=== PATIENT | male | born 1970 | race Caucasian/White ===

== ENCOUNTER 2017-04-22 18:12 | Emergency (ER) | payer MEDICAID, OTHER ==
[~2017-04-22 18:12] MED LIST: CITA40 PO; OXYC1SOL5 PO; QUET300 PO; RIVA20 PO
[2017-04-22 18:18] VITALS: BP 142/90; PULSE 68; RESP 20; TEMP 98; O2SAT 98
[2017-04-22] MEDS ORDERED: BUSP5TAB PO (18:44)
[2017-04-22] MEDS ORDERED: XARE10TA PO (18:44)
[2017-04-22] MEDS ORDERED: BUPR100CR PO (18:44)
[2017-04-22] MEDS ORDERED: TRAZ50TA12 PO (18:44)
[2017-04-22] MEDS ORDERED: LURA20TA PO (18:44)
--- NOTE | 2017-04-22 18:55 | PD ---
HPI Chief Complaint: Suicide Ideation/Attempt Time Seen by Provider: 18:45 Travel History International Travel<30 days: No Contact w/Intl Traveler<30days: No Traveled to known affect area: No History of Present Illness HPI 47-year-old male complains of feeling suicidal today. Patient has history of psychosis and major depression. Patient is on medication for them. Patient's psychiatrist is in [place]. Patient also has history of COPD, hyperlipidemia, DVT. Patient is a smoker. Patient denies any shortness of breath. PFSH Past Medical History Hx Anticoagulant Therapy: Yes (XARELTO) Arthritis: No Asthma: No Autoimmune Disease: No Anxiety: No Depression: Yes Heart Rhythm Problems: No Cancer: No Cardiovascular Problems: Yes High Cholesterol: No Chemotherapy: No Chest Pain: No Congestive Heart Failure: No COPD: Yes Cerebrovascular Accident: Yes (TIA'S ..EPISODES OF DIZZINESS WITH TUNNEL VISION ) Diabetes: No Diminished Hearing: No Deep Vein Thrombosis: Yes Endocrine: No GERD: No Genitourinary: Yes Hiatal Hernia: No Hypertension: No Immune Disorder: Yes (ANTIPHOSPHOLIPID ANTIBODY;PROCTOR SYNDROM) Implanted Vascular Access Dvce: Yes Kidney Stones: Yes (2 years ago) Musculoskeletal: Yes Neurologic: Yes Psychiatric: Yes (MDD; PSYCHOAFFECTIVE D/O) Reproductive: No Respiratory: Yes Immunizations Current: Yes Migraines: No Myocardial Infarction: No Radiation Therapy: No Renal Failure: No Seizures: No Sickle Cell Disease: No Sleep Apnea: No Thyroid Disease: No Ulcer: No Past Surgical History Abdominal Surgery: No AICD: No Arteriovenous Shunt: Yes (IVC FILTER IN 2008) Cardiac Surgery: Yes (IVC filter in Sep 2008 AT [facility]) Ear Surgery: No Endocrine Surgery: No Eye Surgery: No Genitourinary Surgery: No Gynecologic Surgery: No Insulin Pump: No Joint Replacement: No Oral Surgery: No Pacemaker: No Thoracic Surgery: No Other Surgery: Yes (IVC FILTER PLACEMENT) Social History Alcohol Use: Yes (COUPLE DRINKS PER MONTH) Tobacco Use: Yes ("TRYING TO QUIT" UNABLE TO QUANTIFY) Substance Use: Yes (smokes weed 2-3 times/week per pt) Allergies-Medications (Allergen,Severity, Reaction): Coded Allergies: No Known Allergies (Verified , 04/22/17) Reported Meds & Prescriptions Reported Meds & Active Scripts Active Reported Xarelto (Rivaroxaban) 10 Mg Tab 10 Mg PO DAILY Buspirone (Buspirone HCl) 5 Mg Tab 5 Mg PO BID Wellbutrin SR 12 HR (Bupropion HCl) 100 Mg Tab 100 Mg PO Q12HR Trazodone (Trazodone HCl) 50 Mg Tab 50 Mg PO HS Latuda (Lurasidone) 20 Mg Tab 20 Mg PO DAILY Review of Systems General / Constitutional: No: Fever Eyes: No: Visual changes HENT: No: Headaches Cardiovascular: No: Chest Pain or Discomfort Respiratory: No: Shortness of Breath Gastrointestinal: No: Abdominal Pain Genitourinary: No: Dysuria Musculoskeletal: No: Pain Skin: No Rash Neurologic: No: Weakness Psychiatric: Positive: Suicidal Ideations, No: Depression Endocrine: No: Polydipsia Hematologic/Lymphatic: No: Easy Bruising Physical Exam Narrative GENERAL: Well-nourished, well-developed patient. SKIN: Focused skin assessment warm/dry. HEAD: Normocephalic. EYES: No scleral icterus. No injection or drainage. NECK: Supple, trachea midline. No JVD or lymphadenopathy. CARDIOVASCULAR: Regular rate and rhythm without murmurs, gallops, or rubs. RESPIRATORY: Breath sounds equal bilaterally. No accessory muscle use. Mild expiratory wheezes bilaterally. GASTROINTESTINAL: Abdomen soft, non-tender, nondistended. MUSCULOSKELETAL: No cyanosis, or edema. BACK: Nontender without obvious deformity. No CVA tenderness. Neurologic exam normal. Data Data Last Documented VS Vital Signs Date Time Temp Pulse Resp B/P Pulse Ox O2 Delivery O2 Flow Rate FiO2 04/22/17 18:45 18 04/22/17 18:18 98.0 68 142/90 98 Room Air Orders Complete Blood Count With Diff (04/22/17 18:52) Comprehensive Metabolic Panel (04/22/17 18:52) Psych Screen (04/22/17 18:52) Drug Screen, Random Urine (04/22/17 18:52) Labs Laboratory Tests Test 04/22/17 18:05 White Blood Count 8.7 TH/MM3 Red Blood Count 4.83 MIL/MM3 Hemoglobin 15.6 GM/DL Hematocrit 44.4 % Mean Corpuscular Volume 91.9 FL Mean Corpuscular Hemoglobin 32.4 PG Mean Corpuscular Hemoglobin 35.2 % Concent Red Cell Distribution Width 13.4 % Platelet Count 180 TH/MM3 Mean Platelet Volume 8.3 FL Neutrophils (%) (Auto) 55.4 % Lymphocytes (%) (Auto) 28.4 % Monocytes (%) (Auto) 13.2 % Eosinophils (%) (Auto) 1.9 % Basophils (%) (Auto) 1.1 % Neutrophils # (Auto) 4.8 TH/MM3 Lymphocytes # (Auto) 2.5 TH/MM3 Monocytes # (Auto) 1.2 TH/MM3 Eosinophils # (Auto) 0.2 TH/MM3 Basophils # (Auto) 0.1 TH/MM3 CBC Comment DIFF FINAL Differential Comment Sodium Level 139 MEQ/L Potassium Level 3.9 MEQ/L Chloride Level 106 MEQ/L Carbon Dioxide Level 25.4 MEQ/L Anion Gap 8 MEQ/L Blood Urea Nitrogen 9 MG/DL Creatinine 0.83 MG/DL Estimat Glomerular Filtration 99 ML/MIN Rate Random Glucose 85 MG/DL Calcium Level 8.5 MG/DL Total Bilirubin 0.3 MG/DL Aspartate Amino Transf 21 U/L (AST/SGOT) Alanine Aminotransferase 29 U/L (ALT/SGPT) Alkaline Phosphatase 58 U/L Total Protein 7.3 GM/DL Albumin 3.6 GM/DL [facility] Medical Decision Making Medical Screen Exam Complete: Yes Emergency Medical Condition: Yes Interpretation(s) 20 12 PM. CBC within normal limits. CMP within normal limit. Differential Diagnosis Differential diagnosis including depression, suicidal. Narrative Course 47-year-old male feeling suicidal. History of major depression and psychosis. 2012 PM. Patient is medically cleared for psychiatric evaluation and disposition. Nabor Mcgraw MD Apr 22, 2017 18:55
[2017-04-22 19:09] LABS: AUTOMATED NEUTROPHIL # 4.8 TH/MM3 (1.8-7.7); BASOPHIL # 0.1 TH/MM3 (0-0.2); BASOPHIL % 1.1 % (0.0-2.0); EOSINOPHIL # 0.2 TH/MM3 (0-0.4); EOSINOPHIL % 1.9 % (0.0-4.0); HEMATOCRIT 44.4 % (39.0-51.0); HEMO FLAGS DIFF FINAL; LYMPH % 28.4 % (9.0-44.0); LYMPHOCYTE # 2.5 TH/MM3 (1.0-4.8); MEAN CELL VOLUME 91.9 FL (80.0-100.0); MEAN CORPUSCULAR HEMOGLOBIN 32.4 PG (27.0-34.0); MEAN CORPUSCULAR HGB CONC 35.2 % (32.0-36.0); MONO % 13.2 % (0.0-8.0); NEUT % 55.4 % (16.0-70.0); PLATELET COUNT 180 TH/MM3 (150-450); RED BLOOD COUNT 4.83 MIL/MM3 (4.50-5.90); RED CELL DISTRIBUTION WIDTH 13.4 % (11.6-17.2); WHITE BLOOD COUNT 8.7 TH/MM3 (4.0-11.0)
[2017-04-22 19:40] LABS: ANION GAP 8 MEQ/L (5-15); AST (GOT) 21 U/L (15-37); BICARBONATE 25.4 MEQ/L (21.0-32.0); BLOOD UREA NITROGEN 9 MG/DL (7-18); CHLORIDE 106 MEQ/L (98-107); GLOMERULAR FILTRATION RATE 99 ML/MIN (>89); POTASSIUM 3.9 MEQ/L (3.5-5.1); SODIUM (NA) 139 MEQ/L (136-145)
[2017-04-22 19:41] LABS: ALT (GPT) 29 U/L (12-78)
[2017-04-22 19:44] LABS: ALKALINE PHOSPHATASE 58 U/L (45-117); TOTAL BILIRUBIN ADULT 0.3 MG/DL (0.2-1.0)
[2017-04-22 21:05] VITALS: BP 133/78; PULSE 65; RESP 18; TEMP 98.4; O2SAT 99
[2017-04-23 02:07] VITALS: BP 110/67; PULSE 62; RESP 18; TEMP 96.9; O2SAT 96
[2017-04-23 06:26] VITALS: BP 122/73; PULSE 61; RESP 20; TEMP 97.1; O2SAT 96
[2017-04-23 10:39] VITALS: BP 146/74; PULSE 62; RESP 18; O2SAT 98
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
[2017-04-23 12:58] VITALS: BP 146/74; TEMP 98.3
== END 2017-04-23 13:01 | disposition home or self-care (01) ==
LOC: NEPD 18:12 → NEPJ 04-23 13:01
DX: F43.21 Adjustment disorder with depressed mood (principal); Z79.899 Other long term (current) drug therapy
CPT/HCPCS: 80053; 80307; 85025; 99284

== ENCOUNTER 2017-06-22 13:53 | Emergency (ER) | payer OTHER ==
[~2017-06-22] VITALS: Ht 172.7 cm; Wt 112.0 kg
[~2017-06-22 13:53] MED LIST changes: +BUPR100CR PO; +BUSP5TAB PO; -CITA40 PO; +LURA20TA PO; -OXYC1SOL5 PO; -QUET300 PO; -RIVA20 PO; +TRAZ50TA12 PO; +XARE10TA PO
[2017-06-22 13:57] VITALS: BP 128/87; PULSE 59; RESP 15; TEMP 98.4; O2SAT 98
[2017-06-22 14:38] VITALS: BP 122/82; PULSE 57; RESP 20; O2SAT 98
[2017-06-22] MEDS ORDERED: BUSP10TA PO (14:40)
--- NOTE | 2017-06-22 15:11 | PD ---
HPI Chief Complaint: Medical Clearance Time Seen by Provider: 14:33 Travel History International Travel<30 days: No Contact w/Intl Traveler<30days: No Traveled to known affect area: No History of Present Illness HPI 47-year-old male presents to the emergency department for medical clearance. The patient was sent by [facility]. He has history of DVT to bilateral lower extremities and states he has had some achiness and swelling to the right lower extremity and he is to be ruled out for DVT before [facility] will accept him. No alleviating or exacerbating factors. He patient states he has history of bipolar, psychosis, DVT. He has not taken any of his medications in approximately a month. He does not give me a reason as to why he quit taking his medications. Patient denies any fevers or chills. He has no other complaints. PFSH Past Medical History Hx Anticoagulant Therapy: Yes (XARELTO) Arthritis: No Asthma: No Autoimmune Disease: No Blood Disorders: Yes (PROCTOR SYNDROME) Anxiety: No Depression: Yes Heart Rhythm Problems: No Cancer: No Cardiovascular Problems: Yes High Cholesterol: No Chemotherapy: No Chest Pain: No Congestive Heart Failure: No COPD: Yes Cerebrovascular Accident: Yes (TIA'S ..EPISODES OF DIZZINESS WITH TUNNEL VISION ) Diabetes: No Diminished Hearing: No Deep Vein Thrombosis: Yes Endocrine: No Gastrointestinal Disorders: Yes GERD: No Genitourinary: Yes Headaches: No Hiatal Hernia: No Hypertension: No Immune Disorder: Yes (ANTIPHOSPHOLIPID ANTIBODY;PROCTOR SYNDROM) Implanted Vascular Access Dvce: Yes Kidney Stones: Yes (2013) Musculoskeletal: Yes Neurologic: Yes Psychiatric: Yes (MDD; SCHIZOAFFECTIVE D/O) Reproductive: No Respiratory: Yes Immunizations Current: Yes Migraines: No Myocardial Infarction: No Radiation Therapy: No Renal Failure: No Seizures: No Sickle Cell Disease: No Sleep Apnea: No Thyroid Disease: No Ulcer: No Past Surgical History Abdominal Surgery: No AICD: No Arteriovenous Shunt: Yes (IVC FILTER IN 2008) Cardiac Surgery: Yes (IVC filter in Sep 2008 AT [place]) Ear Surgery: No Endocrine Surgery: No Eye Surgery: No Genitourinary Surgery: No Gynecologic Surgery: No Insulin Pump: No Joint Replacement: No Neurologic Surgery: No Oral Surgery: No Pacemaker: No Thoracic Surgery: No Other Surgery: Yes (IVC FILTER PLACEMENT) Social History Alcohol Use: No Tobacco Use: Yes (pack a day ) Substance Use: No Allergies-Medications (Allergen,Severity, Reaction): Coded Allergies: No Known Allergies (Verified , 06/22/17) Reported Meds & Prescriptions Reported Meds & Active Scripts Active Reported Buspirone (Buspirone HCl) 10 Mg Tab 10 Mg PO BID Review of Systems Except as stated in HPI: all other systems reviewed are Neg Physical Exam Narrative GENERAL: Well-nourished, well-developed male patient, afebrile. SKIN: Focused skin assessment warm/dry. HEAD: Normocephalic. Atraumatic. EYES: No scleral icterus. No injection or drainage. NECK: Supple, trachea midline. No JVD or lymphadenopathy. CARDIOVASCULAR: Regular rate and rhythm without murmurs, gallops, or rubs. Bilateral radial and pedal pulses 2+. RESPIRATORY: Breath sounds equal bilaterally. No accessory muscle use. Lungs sounds are clear to auscultation GASTROINTESTINAL: Abdomen soft, non-tender, nondistended. MUSCULOSKELETAL: No cyanosis, or edema. No erythema or swelling noted of bilateral lower extremities. BACK: Nontender without obvious deformity. No CVA tenderness. Data Data Last Documented VS Vital Signs Date Time Temp Pulse Resp B/P (MAP) Pulse Ox O2 Delivery O2 Flow Rate FiO2 06/22/17 14:38 57 20 122/82 (95) 98 Room Air 06/22/17 13:57 98.4 Orders Orders Us Leg Venous Doppler Bilat (06/22/17 ) Complete Blood Count With Diff (06/22/17 15:10) Basic Metabolic Panel (Bmp) (06/22/17 15:10) Act Partial Throm Time (Ptt) (06/22/17 15:10) Prothrombin Time / Inr (Pt) (06/22/17 15:10) Labs Laboratory Tests Test 06/22/17 15:45 White Blood Count 14.8 TH/MM3 Red Blood Count 5.15 MIL/MM3 Hemoglobin 16.2 GM/DL Hematocrit 47.4 % Mean Corpuscular Volume 91.9 FL Mean Corpuscular Hemoglobin 31.3 PG Mean Corpuscular Hemoglobin Concent 34.1 % Red Cell Distribution Width 13.2 % Platelet Count 188 TH/MM3 Mean Platelet Volume 9.4 FL Neutrophils (%) (Auto) 71.7 % Lymphocytes (%) (Auto) 18.4 % Monocytes (%) (Auto) 9.6 % Eosinophils (%) (Auto) 0.1 % Basophils (%) (Auto) 0.2 % Neutrophils # (Auto) 10.6 TH/MM3 Lymphocytes # (Auto) 2.7 TH/MM3 Monocytes # (Auto) 1.4 TH/MM3 Eosinophils # (Auto) 0.0 TH/MM3 Basophils # (Auto) 0.0 TH/MM3 CBC Comment DIFF FINAL Differential Comment Prothrombin Time 10.2 SEC Prothromb Time International Ratio 0.9 RATIO Activated Partial Thromboplast Time 26.7 SEC Blood Urea Nitrogen 16 MG/DL Creatinine 0.89 MG/DL Random Glucose 73 MG/DL Calcium Level 9.1 MG/DL Sodium Level 138 MEQ/L Potassium Level 3.9 MEQ/L Chloride Level 105 MEQ/L Carbon Dioxide Level 25.2 MEQ/L Anion Gap 8 MEQ/L Estimat Glomerular Filtration Rate 92 ML/MIN MDM Medical Decision Making Medical Screen Exam Complete: Yes Emergency Medical Condition: Yes Medical Record Reviewed: Yes Interpretation(s) Last Impressions Lower Extremity Ultrasound 06/22/17 0000 Signed Impressions: Service Date/Time: Thursday, June 22, 2017 15:24 - CONCLUSION: No acute DVT observed. Judd Ruff Jr., MD Differential Diagnosis DVT versus chronic pain versus medical clearance Narrative Course 47-year-old male presents to the emergency department [facility] for possible DVT to the right lower extremity. Patient reports history of DVTs in bilateral lower extremities CBC shows leukocytosis 14.8, nonspecific. BMP shows no acute abnormality. Coags are unremarkable. Venous Doppler ultrasound of the bilateral lower extremities shows no acute DVT absurd. Patient is medically cleared to return to [facility] for care. Diagnosis Primary Impression: Medical clearance for psychiatric admission Additional Impression: History of DVT (deep vein thrombosis) Referrals: [facility] Patient Instructions: General Instructions, Medical Clearance for Psychiatric Care (ED) Additional Instructions: You are medically cleared for [facility]. Return to the emergency department for any acute worsening of symptoms. Med/Other Pt SpecificInfo: No Change to Meds Disposition: 01 DISCHARGE HOME Condition: Stable Naye BurksP Jun 22, 2017 15:11
--- NOTE | 2017-06-22 16:14 | RADRPT ---
EXAM DATE/TIME: 06/22/2017 15:24 [place] COMPARISON: No previous studies available for comparison. INDICATIONS : Bilatearal leg pain. MEDICAL HISTORY : Deep venous thrombosis. Hypercholesterolemia. Chronic obstructive pulmonary disease. GERD. Emphysema. BPH. Atrial fibrillation. Melanoma. Diabetes. SURGICAL HISTORY : ORIF right ankle. Left thumb fracture repair. ENCOUNTER: Subsequent ACUITY: 4 - 6 days PAIN SCORE: 5/10 LOCATION: Bilateral legs. TECHNIQUE: Venous ultrasound of the left and right leg was performed from the inguinal ligament to the proximal calf. Real-time, color Doppler and spectral tracing, compression and augmentation techniques were us ed. FINDINGS: RIGHT LEG: There is normal compressibility of the deep venous system from the inguinal region to the proximal ca lf. No echogenic clot is seen in the lumen of the common femoral, femoral, popliteal, and posterior tibial veins. There is a normal response of the venous system to proximal and distal augmentation an d respiration. LEFT LEG: There is normal compressibility of the deep venous system from the inguinal region to the proximal ca lf. No echogenic clot is seen in the lumen of the common femoral, femoral, popliteal, and posterior tibial veins. There is a normal response of the venous system to proximal and distal augmentation an d respiration. CONCLUSION: No acute DVT observed. Judd Ruff Jr., MD on June 22, 2017 at 16:07 Board Certified Radiologist. This report was verified electronically.
[2017-06-22 16:22] LABS: AUTOMATED NEUTROPHIL # 10.6 TH/MM3 (1.8-7.7); BASOPHIL % 0.2 % (0.0-2.0); EOSINOPHIL % 0.1 % (0.0-4.0); HEMATOCRIT 47.4 % (39.0-51.0); HEMO FLAGS DIFF FINAL; LYMPH % 18.4 % (9.0-44.0); LYMPHOCYTE # 2.7 TH/MM3 (1.0-4.8); MEAN CELL VOLUME 91.9 FL (80.0-100.0); MEAN CORPUSCULAR HEMOGLOBIN 31.3 PG (27.0-34.0); MEAN CORPUSCULAR HGB CONC 34.1 % (32.0-36.0); MONO % 9.6 % (0.0-8.0); NEUT % 71.7 % (16.0-70.0); PLATELET COUNT 188 TH/MM3 (150-450); RED BLOOD COUNT 5.15 MIL/MM3 (4.50-5.90); RED CELL DISTRIBUTION WIDTH 13.2 % (11.6-17.2); WHITE BLOOD COUNT 14.8 TH/MM3 (4.0-11.0)
[2017-06-22 16:34] LABS: APTT (PATIENT) 26.7 SEC (24.3-30.1); INTERNATIONAL NORMALIZED RATIO 0.9 RATIO; PROTHROMBIN TIME - PATIENT 10.2 SEC (9.8-11.6)
[2017-06-22 16:38] LABS: BICARBONATE 25.2 MEQ/L (21.0-32.0); POTASSIUM 3.9 MEQ/L (3.5-5.1)
--- NOTE | 2017-06-22 17:25 | PD ---
Data Data Last Documented VS Vital Signs Date Time Temp Pulse Resp B/P (MAP) Pulse Ox O2 Delivery O2 Flow Rate FiO2 06/22/17 14:38 57 20 122/82 (95) 98 Room Air 06/22/17 13:57 98.4 Orders Orders Us Leg Venous Doppler Bilat (06/22/17 ) Complete Blood Count With Diff (06/22/17 15:10) Basic Metabolic Panel (Bmp) (06/22/17 15:10) Act Partial Throm Time (Ptt) (06/22/17 15:10) Prothrombin Time / Inr (Pt) (06/22/17 15:10) Ed Discharge Order (06/22/17 17:17) Labs Laboratory Tests Test 06/22/17 15:45 White Blood Count 14.8 TH/MM3 Red Blood Count 5.15 MIL/MM3 Hemoglobin 16.2 GM/DL Hematocrit 47.4 % Mean Corpuscular Volume 91.9 FL Mean Corpuscular Hemoglobin 31.3 PG Mean Corpuscular Hemoglobin Concent 34.1 % Red Cell Distribution Width 13.2 % Platelet Count 188 TH/MM3 Mean Platelet Volume 9.4 FL Neutrophils (%) (Auto) 71.7 % Lymphocytes (%) (Auto) 18.4 % Monocytes (%) (Auto) 9.6 % Eosinophils (%) (Auto) 0.1 % Basophils (%) (Auto) 0.2 % Neutrophils # (Auto) 10.6 TH/MM3 Lymphocytes # (Auto) 2.7 TH/MM3 Monocytes # (Auto) 1.4 TH/MM3 Eosinophils # (Auto) 0.0 TH/MM3 Basophils # (Auto) 0.0 TH/MM3 CBC Comment DIFF FINAL Differential Comment Prothrombin Time 10.2 SEC Prothromb Time International Ratio 0.9 RATIO Activated Partial Thromboplast Time 26.7 SEC Blood Urea Nitrogen 16 MG/DL Creatinine 0.89 MG/DL Random Glucose 73 MG/DL Calcium Level 9.1 MG/DL Sodium Level 138 MEQ/L Potassium Level 3.9 MEQ/L Chloride Level 105 MEQ/L Carbon Dioxide Level 25.2 MEQ/L Anion Gap 8 MEQ/L Estimat Glomerular Filtration Rate 92 ML/MIN MDM Supervised Visit with DEBBIE: Yes Narrative Course The history, exam, and medical decision-making in the associated midlevel provider note were completed with my assistance. I reviewed and agree with the findings presented. I attest that I had a [id number] encounter with the patient on the same day, and personally performed and documented my assessment and findings in the medical record. *My assessment and Findings: This is a 47-year-old male who is being evaluated at [facility] for admission and was sent over for medical clearance because he had some calf pain and has a history of DVT. Ultrasound of both lower extremities was obtained which was negative for DVT. Labs demonstrate a leukocytosis which is nonspecific and he has no other symptoms. I think he is appropriate for further evaluation at [facility]. Diagnosis Primary Impression: Medical clearance for psychiatric admission Additional Impression: History of DVT (deep vein thrombosis) Referrals: [facility] Patient Instructions: General Instructions, Medical Clearance for Psychiatric Care (ED) Departure Forms: Tests/Procedures Additional Instruction: You are medically cleared for [facility]. Return to the emergency department for any acute worsening of symptoms. Disposition: 01 DISCHARGE HOME Condition: Stable Haritha Robledo MD Jun 22, 2017 17:25
== END 2017-06-22 17:32 | disposition home or self-care (01) ==
LOC: NEPE 13:53
DX: M79.89 Other specified soft tissue disorders (principal); M79.661 Pain in right lower leg; Z86.718 Personal history of other venous thrombosis and embolism; Z79.01 Long term (current) use of anticoagulants; F31.9 Bipolar disorder, unspecified; F32.9 Major depressive disorder, single episode, unspecified; J44.9 Chronic obstructive pulmonary disease, unspecified; Z86.73 Personal history of transient ischemic attack (TIA), and cerebral infarction without residual deficits; F17.200 Nicotine dependence, unspecified, uncomplicated
CPT/HCPCS: 80048; 85025; 85610; 85730; 93970; 99284